=== PATIENT | male | born 1970 | race African-American/Black ===

== ENCOUNTER 2016-10-17 03:12 | Emergency (ER) | payer MEDICAID ==
[~2016-10-17] VITALS: Ht 190.5 cm; Wt 77.1 kg
[2016-10-17] MEDS ORDERED: Acetaminophen 500mg (ES) tab ORAL ONE (03:45)
[2016-10-17] MEDS ORDERED: Morphine Sulfate 4mg/ml Inj IVP ONE ×3 (04:30→07:00)
[2016-10-17 04:53] VITALS: BP 134/104
[2016-10-17] MEDS ORDERED: Pantoprazole Inj IVP ONE (05:00)
[2016-10-17 05:12] LABS: ALANINE AMINOTRANSFERASE 125 U/L (3-41); ALBUMIN/GLOBULIN RATIO 1.1 (1.0-2.7); ANION GAP 29 (5-15); ASPARTATE AMINO TRANSFERASE 132 U/L (5-40); CALCIUM 9.2 mg/dL (8.6-10.2); CARBON DIOXIDE 21 mEQ/L (20-30); CHLORIDE 89 mEQ/L (98-107); GLOMERULAR FILTRATION RATE > 60 mL/min (>60); HEMOLYSIS 17; LIPASE 12 U/L (< 60); POTASSIUM 4.3 mEQ/L (3.4-4.9); SODIUM 139 mEQ/L (135-145); TOTAL PROTEIN 8.1 g/dL (6.6-8.7)
[2016-10-17 05:28] LABS: BASOPHILS % (AUTO) 1.6 % (0.0-2.0); EOSINOPHILS % (AUTO) 0.1 % (0.0-3.0); LYMPHOCYTES % (AUTO) 27.2 % (20.0-45.0); MEAN CORPUSCULAR HEMOGLOBIN 31.2 PG (27.0-31.0); MEAN CORPUSCULAR HGB CONC 32.1 G/DL (32.0-36.0); MEAN CORPUSCULAR VOLUME 97 FL (80-99); MEAN PLATELET VOLUME 5.9 FL (6.5-10.1); MONOCYTES % (AUTO) 6.2 % (1.0-10.0); NEUTROPHILS % (AUTO) 64.9 % (45.0-75.0); PLATELET COUNT 252 K/UL (150-450); RED BLOOD COUNT 4.37 M/UL (4.70-6.10); RED CELL DISTRIBUTION WIDTH 15.5 % (11.6-14.8); WHITE BLOOD COUNT 6.5 K/UL (4.8-10.8)
[2016-10-17 06:16] LABS: APPEARANCE,URINE CLEAR; KETONES,URINE 2+ (NEGATIVE); LEUKOCYTE ESTERASE ,URINE NEGATIVE (NEGATIVE); NITRITE,URINE NEGATIVE (NEGATIVE); PH,URINE 5 (4.5-8.0); PROTEIN,URINE 2+ (NEGATIVE); UROBILINOGEN,URINE NORMAL MG/DL (0.0-1.0)
[2016-10-17 06:19] VITALS: BP 147/108
--- NOTE | 2016-10-17 06:26 | Emergency Room Report ---
History of Present Illness General Chief Complaint: Abdominal Pain Source: Patient Present Illness HPI This is a 46-year-old male who has a history of alcohol abuse. He recently moved here from [place]. He has a history of alcohol-induced pancreatitis. He said that he hasn't had anything to drink for 4 years. His father got sick in July and patient alleged that he 2 days ago. He started drinking again. That's when he started having abdominal pain. Pain is severe 10 out of 10. He has nausea vomiting. No diarrhea. No radiation. Nothing made it better. Nothing made it worse. Allergies: Coded Allergies: KETOROLAC (Verified Allergy, Unknown, Hives, 10/17/16) Patient History Past Medical History: see triage record, old chart reviewed Past Surgical History: other Pertinent Family History: none Social History: Reports: alcohol use Immunizations: other Reviewed Nursing Documentation: PMH: Agreed, PSxH: Agreed Review of Systems Eye: Denies: blurred vision, eye pain ENT: Denies: ear pain, nose congestion, throat swelling Respiratory: Denies: cough, shortness of breath Cardiovascular: Denies: chest pain, palpitations Gastrointestinal: Reports: abdominal pain, nausea, vomiting, Denies: diarrhea Musculoskeletal: Denies: back pain, joint pain Skin: Denies: rash Neurological: Denies: headache, numbness Endocrine: Denies: increased thirst, increased urine Hematologic/Lymphatic: Denies: easy bruising All Other Systems: negative except mentioned in HPI Physical Exam Vital Signs Date Time Temp Pulse Resp B/P Pulse Ox O2 Delivery O2 Flow Rate FiO2 10/17/16 03:21 97.2 133 22 116/77 97 Room Air vitals show tachycardia Sp02 EP Interpretation: reviewed, normal General Appearance: well appearing, no apparent distress, alert Head: normocephalic, atraumatic Eyes: bilateral eye EOMI, bilateral eye PERRL ENT: hearing grossly normal, normal pharynx Neck: full range of motion, supple, no meningismus Respiratory: chest non-tender, lungs clear, normal breath sounds Cardiovascular #1: regular rate, rhythm, no murmur Gastrointestinal: normal bowel sounds, no mass, no organomegaly, no bruit, non- distended, tenderness - Diffuse Musculoskeletal: back normal, gait/station normal, normal range of motion Neurologic: alert, oriented x3 Psychiatric: mood/affect normal Skin: warm/dry Medical Decision Making Diagnostic Impression: Primary Impression: Abdominal pain of unknown etiology Additional Impressions: Alcohol abuse Esophagitis, acute ER Course Patient presents with abdominal pain. Labs unremarkable. No evidence of pancreatitis. CT scan pending. Patient stated that he only started in 2 days ago. Never been to another hospital since then. History is not congruent with my findings. On the [employer] system, his been to several hospitals since the end of July. He was at [place] and [facility] recently. He received Librium and hydromorphone. He did admit to this after I asked him about it. I suspect there is a drug-seeking component to this. After IV fluid and morphine, heart rate much improved. We'll discharge home if CT is negative for acute abdomen for Acute abdomen. patient said that he is still going to AA meeting. Lab Results Impression labs with elevated liver enzyme. CT/MRI/US Diagnostic Results CT/MRI/US Diagnostic Results : Imaging Test Ordered: ct abd and pelvis Impression Read by radiologist. No definite abnormality. Possible esophagitis. Last Vital Signs Date Time Temp Pulse Resp B/P Pulse Ox O2 Delivery O2 Flow Rate FiO2 10/17/16 06:19 91 14 147/108 100 Room Air 10/17/16 05:38 97.2 Status: improved Disposition: HOME, SELF-CARE Condition: Stable Scripts Omeprazole Magnesium (PRILOSEC OTC) 20 Mg Tablet. 20 MG ORAL DAILY, #30 TAB Prov: JOHNNIE CHAO M.D. 10/17/16 Promethazine Hcl* (PHENERGAN*) 25 Mg Tablet 25 MG ORAL Q6H, #15 TAB 0 Refills Prov: JOHNNIE CHAO M.D. 10/17/16 Referrals: NOT CHOSEN IPA/,REFERRING (PCP) Patient Instructions: Abdominal Pain, Adult Additional Instructions: Followup with your DrCoty in 2 to 3 days. Return if symptom worsen. JOHNNIE CHAO M.D. Oct 17, 2016 06:26
[2016-10-17 06:36] LABS: BACTERIA,URINE FEW /HPF; MUCUS,URINE FEW /LPF (NONE/OCC); RBC,URINE 0-2 /HPF (0 - 0); SQUAMOUS EPITHELIAL CELL,UR FEW /LPF (NONE/OCC); WBC,URINE 0-2 /HPF (0 - 0)
[2016-10-17] MEDS ORDERED: PHENERGAN25 M1 ORAL (06:57)
[2016-10-17] MEDS ORDERED: PRILOSEC OTC20 MG ORAL (06:57)
[2016-10-17 07:08] VITALS: BP 147/108
[2016-10-17] MEDS ORDERED: LIBRIUM10 MG ORAL (07:11)
--- NOTE | 2016-10-17 09:49 | Diagnostic Imaging Report ---
Clinical Indication: Abdominal pain Technique: No oral contrast utilized, per emergency room physician request IV administration nonionic contrast. Venous phase spiral acquisition obtained through the abdomen and pelvis. Multiplanar reconstructions were generated. Total dose length product 689 mGycm. CTDIvol(s) 12 mGy Comparison: None Findings: The appendix is normal. There is no evidence of diverticulosis or diverticulitis. No dissection. No free or loculated intraperitoneal air or fluid. There is wall thickening of the distal esophagus. The stomach is mildly distended. The duodenum is unremarkable. The liver is diffusely hypoattenuating, consistent with fatty change. No focal abnormality. The gallbladder, bile ducts, are unremarkable. The pancreas is atrophic. The spleen, adrenals, kidneys are unremarkable. No retroperitoneal or mesenteric mass or adenopathy. The bladder is distended. No pelvic mass or adenopathy. The included lung bases are clear. The bones demonstrate minimal degenerative changes at L4-5. Impression: Distal esophageal wall thickening, may indicate esophagitis or, less likely, neoplasm. Correlate with clinical findings, consider endoscopy if clinically indicated No acute process otherwise Fatty liver L4-5 disc degeneration This agrees with the preliminary interpretation provided overnight by [facility] teleradiology service. The CT scanner at [facility] is accredited by the [employer] and the scans are performed using protocols designed to limit radiation exposure to as low as reasonably achievable to attain images of sufficient resolution adequate for diagnostic evaluation.
== END 2016-10-17 07:12 | disposition home or self-care (01) ==
LOC: EMR 03:38
DX: R10.9 Unspecified abdominal pain (principal); F10.10 Alcohol abuse, uncomplicated; K20.9 Esophagitis, unspecified; K76.0 Fatty (change of) liver, not elsewhere classified
CPT/HCPCS: 36415; 74177; 80053; 80300; 81003; 83690; 85025; 85610; 85730; 96361; 96374; 96375; 99284; C9113; J2270; J2405; Q9967

== ENCOUNTER 2020-05-26 03:02 | Emergency (ER) | payer BC, OTHER ==
[~2020-05-26] VITALS: Ht 190.5 cm; Wt 83.9 kg
[~2020-05-26 03:02] MED LIST: LIBRIUM10 MG ORAL; PHENERGAN25 M1 ORAL; PRILOSEC OTC20 MG ORAL
[2020-05-26] MEDS ORDERED: Pantoprazole Inj IVP ONE (03:15)
[2020-05-26] MEDS ORDERED: HYDROmorphone 1mg/ml Carpuject IVP ONE ×2 (03:15→05:00)
--- NOTE | 2020-05-26 03:17 | Emergency Room Report ---
History of Present Illness General Chief Complaint: Abdominal Pain Source: Patient Present Illness HPI This is a 50-year-old male with a history of gastritis and pancreatitis. He presents with chief complaint of abdominal pain. Pain to the epigastric area. He has nausea and vomiting. He also has hiccups. This been ongoing for last 4 days. Similar symptom in the past. He said this felt like his pancreatitis. He was sober for a year until he started again on 05/20. Pain is 9 out of 10. Worse with eating. Better with rest. Allergies: Coded Allergies: KETOROLAC (Verified Allergy, Unknown, Hives, 10/17/16) COVID-19 Screening Contact w/high risk pt: No Experienced COVID-19 symptoms?: Yes COVID-19 Testing performed [employer]: No Patient History Past Medical History: see triage record, old chart reviewed Past Surgical History: none Pertinent Family History: none Social History: Reports: alcohol use Immunizations: other Reviewed Nursing Documentation: PMH: Agreed; PSxH: Agreed Nursing Documentation-PMH Past Medical History: No History, Except For Review of Systems Eye: Denies: eye pain, blurred vision ENT: Denies: ear pain, nose congestion, throat swelling Respiratory: Denies: cough, shortness of breath Cardiovascular: Denies: chest pain, palpitations Gastrointestinal: Reports: abdominal pain, nausea, vomiting; Denies: diarrhea Musculoskeletal: Denies: back pain, joint pain Skin: Denies: rash Neurological: Denies: headache, numbness Endocrine: Denies: increased thirst, increased urine Hematologic/Lymphatic: Denies: easy bruising All Other Systems: negative except mentioned in HPI Physical Exam Vital Signs Date Time Temp Pulse Resp B/P (MAP) Pulse Ox O2 Delivery O2 Flow Rate FiO2 05/26/20 02:55 98.8 117 18 158/110 (126) 99 Room Air Vitals with tachycardia and high blood pressure Sp02 EP Interpretation: reviewed, normal General Appearance: well appearing, no apparent distress, alert Head: normocephalic, atraumatic Eyes: bilateral eye PERRL, bilateral eye EOMI ENT: hearing grossly normal, normal pharynx Neck: full range of motion, supple, no meningismus Respiratory: chest non-tender, lungs clear, normal breath sounds Cardiovascular #1: regular rate, rhythm, no murmur Gastrointestinal: normal bowel sounds, no mass, no organomegaly, no bruit, non- distended, tenderness - epigastric pain Musculoskeletal: back normal, normal range of motion, gait/station normal Psychiatric: mood/affect normal Medical Decision Making Diagnostic Impression: Primary Impression: Acute on chronic pancreatitis Additional Impressions: New onset type 2 diabetes mellitus Hiccoughs ER Course Patient with epigastric pain. Labs unremarkable except for elevated glucose and mild metabolic acidosis. Lipase is normal. CT scan showed atrophy and calcification of his pancreas. This is evidence of sequelae of chronic pancreatitis. This probably explain his diabetes. Pain is well controlled. He also has hiccup for the last few days. Better with Thorazine. Will discharge home with outpatient follow-up. Rhythm Strip Diag. Results EP Interpretation: yes Rate: 88 Rhythm: NSR, no PVC's, no ectopy Last Vital Signs Date Time Temp Pulse Resp B/P (MAP) Pulse Ox O2 Delivery O2 Flow Rate FiO2 05/26/20 02:55 98.8 117 18 158/110 (126) 99 Room Air Status: improved Disposition: HOME, SELF-CARE Condition: Stable Scripts Metformin Hcl* (METFORMIN HCL*) 500 Mg Tablet 500 MG ORAL TWICE A DAY, #60 TAB Prov: Gage Pena MD 05/26/20 Hydrocodone/Acetaminophen 5-325* (HYDROCODONE/ACETAMINOPHEN 5-325*) 1 Each Tablet 1 TAB ORAL Q6H PRN for For Pain, #30 TAB 0 Refills Prov: Gage Pena MD 05/26/20 Additional Instructions: Follow-up with your doctor within 7 days. Return if symptoms worsen. Gage Pena MD May 26, 2020 03:17
[2020-05-26 03:30] VITALS: BP 157/102
--- NOTE | 2020-05-26 03:30 | NUR ---
ED Nurse Note: BROUGHT IN BY LUCIA NARAYAN 67 FROM HOME C/O ABD PAIN ONSET 1 WK. STATES PRODUCTIVE COUGH AND NV. VSS, NAD, AAOX4, AMBULATORY, ERMD AT BEDSIDE.
--- NOTE | 2020-05-26 03:40 | NUR ---
ED Nurse Note: BLOOD COLLECTED AND SENT TO LAB
[2020-05-26 03:55] LABS: BASOPHILS % (AUTO) 3.3 % (0.0-2.0); EOSINOPHILS % (AUTO) 0.1 % (0.0-3.0); HEMATOCRIT 48.4 % (42.0-52.0); HEMOGLOBIN 16.3 G/DL (14.2-18.0); LYMPHOCYTES % (AUTO) 29.5 % (20.0-45.0); MEAN CORPUSCULAR VOLUME 85 FL (80-99); MONOCYTES % (AUTO) 8.8 % (1.0-10.0); NEUTROPHILS % (AUTO) 58.3 % (45.0-75.0); PLATELET COUNT 181 K/UL (150-450); RED BLOOD COUNT 5.69 M/UL (4.70-6.10); RED CELL DISTRIBUTION WIDTH 11.9 % (11.6-14.8); WHITE BLOOD COUNT 7.8 K/UL (4.8-10.8)
--- NOTE | 2020-05-26 03:59 | NUR ---
ED Nurse Note: 18g right ej inserted by dr almeida
[2020-05-26 04:07] LABS: ANION GAP 25 mmol/L (5-15); BLOOD UREA NITROGEN 17 mg/dL (7-18); CALCIUM 9.3 MG/DL (8.5-10.1); CARBON DIOXIDE 15 MMOL/L (21-32); CHLORIDE 91 MMOL/L (98-107); CREATININE 1.2 MG/DL (0.55-1.30); POTASSIUM 4.9 MMOL/L (3.5-5.1); SODIUM 131 MMOL/L (136-145)
[2020-05-26 04:11] LABS: ALANINE AMINOTRANSFERASE 59 U/L (12-78); ALBUMIN 4.3 G/DL (3.4-5.0); ALBUMIN/GLOBULIN RATIO 0.9 (1.0-2.7); ALKALINE PHOSPHATASE 102 U/L (46-116); ASPARTATE AMINO TRANSFERASE 51 U/L (15-37); BILIRUBIN,TOTAL 0.8 MG/DL (0.2-1.0)
--- NOTE | 2020-05-26 04:43 | NUR ---
ED Nurse Note: REPEAT BLOOD AND URINE COLLECTED AND SENT TO LAB
--- NOTE | 2020-05-26 04:44 | NUR ---
ED Nurse Note: PT WENT FOR CT
[2020-05-26 04:50] LABS: APPEARANCE,URINE CLEAR; BILIRUBIN, URINE NEGATIVE (NEGATIVE); COLOR,URINE PALE YELLOW; GLUCOSE, URINE (UA) 4+ (NEGATIVE); KETONES,URINE 2+ (NEGATIVE); LEUKOCYTE ESTERASE ,URINE NEGATIVE (NEGATIVE); NITRITE,URINE NEGATIVE (NEGATIVE); PH,URINE 5 (4.5-8.0); PROTEIN,URINE 2+ (NEGATIVE); UROBILINOGEN,URINE NORMAL MG/DL (0.0-1.0)
[2020-05-26 04:56] LABS: ANION GAP 21 mmol/L (5-15); BLOOD UREA NITROGEN 15 mg/dL (7-18); CARBON DIOXIDE 17 MMOL/L (21-32); CHLORIDE 95 MMOL/L (98-107); CREATININE 1.2 MG/DL (0.55-1.30); POTASSIUM 4.4 MMOL/L (3.5-5.1); SODIUM 133 MMOL/L (136-145)
--- NOTE | 2020-05-26 05:22 | NUR ---
ED Nurse Note: pt back from ct
--- NOTE | 2020-05-26 05:43 | Diagnostic Imaging Report ---
EXAM: CT Abdomen and Pelvis Without Intravenous Contrast CLINICAL HISTORY: ABD PAIN TECHNIQUE: Axial computed tomography images of the abdomen and pelvis without intravenous contrast. CTDI is 4.20 mGy and DLP is 221.50 mGy-cm. One or more of the following dose reduction techniques were used: automated exposure control, adjustment of the mA and/or kV according to patient size, use of iterative reconstruction technique. COMPARISON: CT abdomen and pelvis October 17, 2016 FINDINGS: Lung bases: Unremarkable. No mass. No consolidation. ABDOMEN: Liver: Mild hepatic steatosis. Gallbladder and bile ducts: Unremarkable. No calcified stones. No ductal dilation. Pancreas: Severe atrophy and calcifications of the pancreas, consistent with sequelae of chronic pancreatitis. No ductal dilation. Spleen: Unremarkable. No splenomegaly. Adrenals: Unremarkable. No mass. Kidneys and ureters: Unremarkable. No obstructing stones. No hydronephrosis. Stomach and bowel: Unremarkable. No obstruction. No mucosal thickening. Small hiatal hernia. Mild thickening of the distal esophagus which is improved when compared to September 2016. PELVIS: Appendix: No findings to suggest acute appendicitis. Bladder: Unremarkable. No stones. Reproductive: Unremarkable as visualized. ABDOMEN and PELVIS: Intraperitoneal space: Unremarkable. No free air. No significant fluid collection. Bones/joints: No acute fracture. No dislocation. Soft tissues: Small fat-containing umbilical hernia. Vasculature: Unremarkable. No abdominal aortic aneurysm. Lymph nodes: Unremarkable. No enlarged lymph nodes. IMPRESSION: 1. Mild hepatic steatosis. 2. Severe atrophy and calcifications of the pancreas, consistent with sequelae of chronic pancreatitis. 3. Small fat-containing umbilical hernia. 4. Small hiatal hernia. Mild thickening of the distal esophagus which is improved when compared to September 2016.
[2020-05-26] MEDS ORDERED: METFORMIN HCL500 M1 ORAL (05:56)
[2020-05-26] MEDS ORDERED: HYDROCODON-ACE1 EA15 ORAL (05:56)
[2020-05-26 06:00] VITALS: BP 134/78
[2020-05-26 06:05] VITALS: BP 134/78
--- NOTE | 2020-05-26 06:05 | NUR ---
ER DISCHARGE NOTE: Patient is cleared to be discharged per ERMD, pt is aox4, on room air, with stable vital signs. pt was given dc and prescription instructions, pt was able to verbalize understanding, pt id band and iv site removed without complications. pt is able to ambulate with steady gait. pt took all belongings.
== END 2020-05-26 06:05 | disposition home or self-care (01) ==
LOC: EDBD 03:02 → EMR 03:37
DX: K85.90 Acute pancreatitis without necrosis or infection, unspecified (principal); K86.1 Other chronic pancreatitis; E11.8 Type 2 diabetes mellitus with unspecified complications; R06.6 Hiccough; Z72.89 Other problems related to lifestyle; Z88.8 Allergy status to other drugs, medicaments and biological substances
CPT/HCPCS: 36415; 74176; 80048; 80053; 80307; 81003; 83690; 85025; 96361; 96372; 96374; 96375; 96376; 99284; C9113; J1170; J2405; J3230; J7030